=== PATIENT | male | born 1975 | race Caucasian/White ===

== ENCOUNTER 2024-10-04 10:57 | Emergency (ER) | payer BC, SELFPAY ==
[2024-10-04 11:02] VITALS: BP 144/85; PULSE 71; TEMP 36.7; O2SAT 99; BMI 33.8
--- NOTE | 2024-10-04 11:37 | ED.GENADUL1 ---
HPI HPI - General Adult General Chief complaint: Back Pain/Injury Stated complaint: L BACK PAIN Time Seen by Provider: 10/04/24 11:01 Source: patient Mode of arrival: walk-in History of Present Illness HPI narrative: 49-year-old male presents to the emergency department for right flank pain. He has had it for about 2 months. He had outpatient x-ray and blood work done at another hospital. He has not had dysuria or hematuria and we recalls no injury. It has been continuous and it is not going away. He took some steroids for it but it did not seem to help. No abdominal pain or lower back pain or left-sided pain. Related Data Home Medications ?Medication ?Instructions ?Recorded ?Confirmed No Known Home Medications 10/04/24 10/04/24 Allergies Allergy/AdvReac Type Severity Reaction Status Date / Time No Known Drug Allergies Allergy Verified 10/04/24 11:01 Review of Systems ROS Narrative A ten point review of systems is negative except as noted above. PFSH PFSH Social History Little interest or pleasure in doing things: not at all Feeling down, depressed, or hopeless: not at all Exam Narrative Exam Narrative: Nurses note and vital signs reviewed and patient is not hypoxic. General: The patient appears well and in no apparent distress. Patient is resting comfortably on cart. Skin: Warm, dry, no pallor noted. There is no rash noted. Head: Normocephalic, atraumatic Ears, Nose, Mouth, and Throat: oral mucosa is moist. Nares patent. Cardiovascular: Regular Rate and Rhythm Respiratory: Patient is in no distress, no accessory muscle use, lungs are clear to auscultation, no wheezing, rales or rhonchi Back: non-tender, no CVA tenderness bilaterally to percussion. There is no bruise or rash in the right flank region. GI: Soft and nontender Musculoskeletal: The patient has no evidence of calf tenderness, no pitting edema, symmetrical pulses noted bilaterally Neurological: A&O, normal speech Psychiatric: Cooperative Constitutional Vital Signs, click to edit/add: Last Vital Signs Temp 98.0 F 10/04/24 11:02 Pulse 71 10/04/24 11:02 Resp 16 10/04/24 11:02 BP 144/85 H 10/04/24 11:02 Pulse Ox 99 10/04/24 11:02 O2 Del Method Room Air 10/04/24 11:02 Course Vital Signs Vital signs: Vital Signs Temperature 98.0 F 10/04/24 11:02 Pulse Rate 71 10/04/24 11:02 Respiratory Rate 16 10/04/24 11:02 Blood Pressure 144/85 H 10/04/24 11:02 Pulse Oximetry 99 10/04/24 11:02 Oxygen Delivery Method Room Air 10/04/24 11:02 Temperature 98.0 F 10/04/24 11:02 Pulse Rate 71 10/04/24 11:02 Respiratory Rate 16 10/04/24 11:02 Blood Pressure 144/85 H 10/04/24 11:02 Pulse Oximetry 99 10/04/24 11:02 Oxygen Delivery Method Room Air 10/04/24 11:02 Medical Decision Making MDM Narrative Medical decision making narrative: CT scan shows no evidence of PE or other cause of his pain. It is most likely muscular. Treatment diagnosis and follow-up were discussed with the patient. Differential Diagnosis Differential Diagnosis: PE, pneumothorax, kidney stone, muscle pain Lab Data Lab results reviewed: Yes I reviewed the patient's lab results Labs: Lab Results 10/04/24 Range/Units 11:25 Urine Color Lt. yellow (YELLOW) Urine Clarity Clear (CLEAR) Urine pH 6.0 (5.0-9.0) Ur Specific [place] 1.025 (1.005-1.025) Urine Protein Negative (NEG/TRACE) mg/dL Urine Glucose (UA) Negative (NEGATIVE) mg/dL Urine Ketones Negative (NEGATIVE) mg/dL Urine Occult Blood Negative (NEGATIVE) Urine Nitrite Negative (NEGATIVE) Urine Bilirubin Negative (NEGATIVE) Urine Urobilinogen 0.2 (0.2-1.0) EU/dL Ur Leukocyte Esterase Negative (NEGATIVE) Urine RBC 0-2 (0-2) #/HPF Urine WBC 0-2 A (NONE SEEN) #/HPF Ur Squamous Epith Cells Rare (NONE/RARE) #/LPF Urine Crystals None seen (None Seen) #/HPF Urine Bacteria Trace A (NONE SEEN) #/HPF Urine Casts None seen (NONE SEEN) #/LPF Urine Mucus Trace A (NONE SEEN) Ur Culture Indicated? No Imaging Data CT scan - chest: Radiologist's impression: ITS Impressions Chest CTA 10/04/24 11:58 IMPRESSION: No acute cardiopulmonary pathology. There is no evidence of pulmonary embolism. Impression dictated by: Marc Rodriguez M.D. 10/04/2024 12:56 PM Dictation [facility] Electronically authenticated by: [id number] Y Date: 10/04/2024 12:56 Discharge Plan Discharge Chief Complaint: Back Pain/Injury Clinical Impression: Right flank pain Patient Disposition: Home, Self-Care Time of Disposition Decision: 13:19 Condition: Good Mode of Transportation: Private Vehicle Prescriptions / Home Meds: No Action No Known Home Medications Print Language: [place] Instructions: Flank Pain (ED) Referrals: JENNIFER MACIAS [Primary Care Provider, Family Practice] - 1 week
[2024-10-04 11:45] LABS: Glucose Urine UA NEGATIVE (NEGATIVE)
[2024-10-04 11:56] LABS: Cast Seen? NONE SEEN #/LPF (NONE SEEN); Crystals Seen? None Seen #/HPF (None Seen); Urine Culture Indicated NO
--- NOTE | 2024-10-04 11:58 | CT_ITS ---
[address] [address] Patient Name: BELLA MICHELE MRN: [id number] date: 1975 Sex: M Assigned Patient Location: ER Current Patient Location: ER Accession/Order Number: [id number] Exam Date: 10/04/2024 12:50 Report Date: 10/04/2024 12:56 At the request of: EDWARD PEDRAZA MD Procedure: CT angio chest CT angio chest 10/04/2024 12:33 PM SIGN AND SYMPTOMS: Right posterior rib pain for 2 months CONTRAST: 100 mL of intravenous Omnipaque 350 TECHNIQUE: Multidetector CT axial slices of the chest were obtained with IV contrast. Multiplanar reformats were performed and viewed on a separate workstation and reviewed to further define anatomy and possible pathology. CT was performed with one or more of the following dose reduction techniques: Automated exposure control, adjustment of the mA and/or kV according to patient size, or use of iterative reconstruction technique. COMPARISON: None. FINDINGS: Lower neck: Thyroid gland within normal limits, no supraclavicle adenopathy. Vessels: Within normal limits. There is no evidence of pulmonary embolism. Mediastinum and Deborah: Within normal limits. Heart: Normal size. No pericardial effusion. Airways: Within normal limits Lungs: There is a pleural-based 4 mm noncalcified nodule within the right upper lobe anteriorly. There is an atelectasis. Pleura: Within normal limits. Chest Wall: Within normal limits. Upper Abdomen: Within normal limits. Bones: Within normal limits. CT/CT angio chest IMPRESSION: No acute cardiopulmonary pathology. There is no evidence of pulmonary embolism. Impression dictated by: Marc Rodriguez M.D. 10/04/2024 12:56 PM Dictation Location: [employer] Electronically authenticated by: [id number] Y Date: 10/04/2024 12:56
== END 2024-10-04 13:35 | disposition home or self-care (01) ==
PROVIDERS: Emergency Provider Emergency Medicine; PCP Family Medicine
DX: R10.9 Unspecified abdominal pain (principal)
CPT/HCPCS: 71275; 81001; 99285; Q9967